=== PATIENT | male | born 1995 | race Caucasian/White ===

== ENCOUNTER 2020-02-29 23:09 | Emergency (ER) | payer SELFPAY ==
[~2020-02-29] VITALS: Ht 170.2 cm; Wt 59.0 kg
[~2020-02-29 23:09] MED LIST: ACETAMINOPHEN500 MG PO; ANAPROX DS550 MG PO; BENADRYL25 MG PO; IBUPROFEN200 MG PO; MELOXICAM15 MG PO; NORCO 5-325 TA1 EACH PO; TYLENOL WITH C1 EACH PO
[2020-03-01] MEDS ORDERED: TRIAMCINOLONE A15 G3 TOP (00:07)
== END 2020-03-01 00:14 | disposition home or self-care (01) ==
LOC: ED 23:09
DX: L25.8 Unspecified contact dermatitis due to other agents (principal); F17.200 Nicotine dependence, unspecified, uncomplicated; Z88.0 Allergy status to penicillin; Z88.5 Allergy status to narcotic agent; Z88.8 Allergy status to other drugs, medicaments and biological substances
CPT/HCPCS: 99282